=== PATIENT | male | born 1985 | race Caucasian/White ===

== ENCOUNTER 2016-07-23 15:18 | Emergency (ER) | payer OTHER ==
[~2016-07-23] VITALS: Ht 182.9 cm; Wt 97.5 kg
[2016-07-23 15:19] VITALS: BP 158/82
[2016-07-23] MEDS ORDERED: IBUP600T26 PO (15:46)
[2016-07-23] MEDS ORDERED: TYLE325T5 PO (15:46)
[2016-07-23] MEDS ORDERED: AMOX500C PO (15:53)
[2016-07-23] MEDS ORDERED: HYDR-3713 PO (15:53)
== END 2016-07-23 16:08 | disposition home or self-care (01) ==
LOC: M ED 16:05
DX: K02.9 Dental caries, unspecified (principal); R51 Headache; M54.9 Dorsalgia, unspecified; F17.210 Nicotine dependence, cigarettes, uncomplicated

== ENCOUNTER → 2017-02-17 | Outpatient (REF) ==
[~2017-02-17] MED LIST: AMOX500C PO; HYDR-3713 PO; IBUP-1022 PO; TYLE325T5 PO
--- NOTE | 2017-02-17 15:42 | REP ---
LUMBOSACRAL SPINE: AP and lateral views of the lumbosacral spine are performed with three total views obtained. There is no compression fracture or malalignment with normal lumbar lordosis. There is mild spurring at L5 and S1 with moderate intervening disc space narrowing at L5-S1, with subchondral sclerosis as well as sclerosis at the posterior facet joints. There is mild narrowing and subchondral sclerosis at L4-5 as well. The posterior elements are intact. IMPRESSION: Mild to moderate degenerative changes L4-5 and L5-S1. Signed by Deng Brown MD 02/18/2017 04:30 P
== END ==
LOC: M SMT 13:31
PROVIDERS: ATTEND Internal Medicine
DX: M51.36 Other intervertebral disc degeneration, lumbar region (principal)

== ENCOUNTER → 2017-07-22 | Outpatient (CLI) | payer OTHER ==
[2017-07-22 08:59] LABS: HEMATOCRIT 45.1 % (42.0-52.0); MEAN CORPUSCULAR HEMOGLOBIN 29.8 pg (27.0-33.0); MEAN CORPUSCULAR HGB CONC 33.3 g/dl (32.0-36.5); MEAN CORPUSCULAR VOLUME 89.7 fl (80.0-96.0); PLATELET COUNT, AUTOMATED 335 10^3/uL (150-450); RED BLOOD COUNT 5.03 10^6/uL (4.30-6.10); RED CELL DISTRIBUTION WIDTH 12.4 % (11.5-14.5); WHITE BLOOD COUNT 9.3 10^3/uL (4.0-10.0)
[2017-07-22 09:56] LABS: ANION GAP 7 MEQ/L (8-16); BLOOD UREA NITROGEN 18 MG/DL (7-18); CARBON DIOXIDE LEVEL 33 MEQ/L (21-32); CHLORIDE LEVEL 99 MEQ/L (98-107); CREATININE FOR GFR 0.84 MG/DL (0.70-1.30); GLOMERULAR FILTRATION RATE > 60.0 (>60); GLUCOSE, FASTING 87 MG/DL (70-100); POTASSIUM SERUM 3.8 MEQ/L (3.5-5.1); SODIUM LEVEL 139 MEQ/L (136-145)
[2017-07-22 09:57] LABS: ALBUMIN 4.8 GM/DL (3.2-5.2); ALBUMIN/GLOBULIN RATIO 1.55 (1.00-1.93); ALKALINE PHOSPHATASE 91 U/L (45-117); ALT/SGPT 28 U/L (12-78); AST/SGOT 20 U/L (7-37); BILIRUBIN,TOTAL 0.6 MG/DL (0.2-1.0); CALCIUM LEVEL 9.2 MG/DL (8.5-10.1); CHOLESTEROL LEVEL 222 MG/DL (<200); CHOLESTEROL RISK RATIO 4.269 (<5); HDL CHOLESTEROL 52 MG/DL (>40); NON-HDL-C 170 MG/DL; PROSTATIC SPECIFIC AG MONITOR 0.58 NG/ML (< 4.0); TOTAL PROTEIN 7.9 GM/DL (6.4-8.2); TRIGLYCERIDES LEVEL 165 MG/DL (<150)
[2017-07-22 10:01] LABS: TESTOSTERONE 287 NG/DL (241-827)
[2017-07-22 11:04] LABS: ESTIMATED AVERAGE GLUCOSE 114 MG/DL (60-110); HEMOGLOBIN A1c 5.6 %
== END ==
LOC: M LAB 08:07
DX: D64.9 Anemia, unspecified (principal); R53.83 Other fatigue; E03.9 Hypothyroidism, unspecified
CPT/HCPCS: 84403

== ENCOUNTER 2017-10-06 15:48 | Emergency (ER) | payer OTHER | END 2017-10-06 17:58 | disposition left against medical advice (07) | LOC: M ED 15:48 | DX: Z53.29 Procedure and treatment not carried out because of patient's decision for other reasons (principal) ==

== ENCOUNTER → 2017-12-19 | Outpatient (CLI) | payer OTHER | LOC: M RAD 14:15 | DX: M46.1 Sacroiliitis, not elsewhere classified (principal) | CPT/HCPCS: 72148 ==

== ENCOUNTER 2018-04-03 21:48 | Emergency (ER) | payer OTHER ==
[2018-04-03] MEDS: METOCLOPRAMIDE INJ 10MG/2ML VIAL (J2765) IV (23:00)
[2018-04-03] MEDS: NS 1,000 ML IV (23:01)
[2018-04-03 23:02] LABS: BASO # 0.1 10^3/uL (0.0-0.2); BASO % 0.4 % (0.0-1.0); HEMOGLOBIN 15.5 g/dl (13.5-17.5); IMMATURE GRANULOCYTE % 1.1 % (0-3.0); LYMPH % 10.6 % (24.0-44.0); MEAN CORPUSCULAR HEMOGLOBIN 30.6 pg (27.0-33.0); MEAN CORPUSCULAR HGB CONC 33.7 g/dl (32.0-36.5); MEAN CORPUSCULAR VOLUME 90.9 fl (80.0-96.0); MONO # 1.1 10^3/uL (0.0-0.8); MONO % 5.9 % (0.0-5.0); NEUTROPHILS # 15.7 10^3/uL (1.8-7.7); PLATELET COUNT, AUTOMATED 438 10^3/uL (150-450); RED BLOOD COUNT 5.06 10^6/uL (4.30-6.10); RED CELL DISTRIBUTION WIDTH 12.8 % (11.5-14.5); WHITE BLOOD COUNT 19.2 10^3/uL (4.0-10.0)
[2018-04-03] MEDS: FLUORESCEIN OPHTH 1 MG STRIP OS (23:06)
[2018-04-03] MEDS: CLINDAMYCIN 900 MG in APPROPRIATE DILUENT 1 EA IV (23:13)
[2018-04-03] MEDS: MORPHINE 4 MG/ML 1ML VIAL/SYRINGE (J2270) IV (23:13)
[2018-04-03 23:22] LABS: ERYTHROCYTE SEDIMENTATION RATE 9 mm/hr (0-15)
[2018-04-03 23:30] LABS: ALBUMIN 4.1 GM/DL (3.2-5.2); ALBUMIN/GLOBULIN RATIO 1.08 (1.00-1.93); ALKALINE PHOSPHATASE 123 U/L (45-117); ALT/SGPT 68 U/L (12-78); ANION GAP 8 MEQ/L (8-16); AST/SGOT 32 U/L (7-37); BILIRUBIN,DIRECT < 0.1 MG/DL (0.0-0.2); BILIRUBIN,TOTAL 0.2 MG/DL (0.2-1.0); BLOOD UREA NITROGEN 13 MG/DL (7-18); C REACTIVE PROTEIN QUANTITATIV 1.05 MG/DL (0.00-0.30); CALCIUM LEVEL 9.3 MG/DL (8.5-10.1); CARBON DIOXIDE LEVEL 28 MEQ/L (21-32); CHLORIDE LEVEL 103 MEQ/L (98-107); CREATININE FOR GFR 0.98 MG/DL (0.70-1.30); GLOMERULAR FILTRATION RATE > 60.0 (>60); GLUCOSE, FASTING 104 MG/DL (70-100); POTASSIUM SERUM 4.2 MEQ/L (3.5-5.1); SODIUM LEVEL 139 MEQ/L (136-145); TOTAL PROTEIN 7.9 GM/DL (6.4-8.2)
[2018-04-04] MEDS: NORCO 5/325MG TABLET (BULK FOR ED) PO (00:15)
== END 2018-04-04 00:26 | disposition home or self-care (01) ==
LOC: M ED 04-04 00:26
DX: K13.0 Diseases of lips (principal); K02.9 Dental caries, unspecified; Z72.0 Tobacco use; Z79.899 Other long term (current) drug therapy
CPT/HCPCS: J2270

== ENCOUNTER 2018-04-09 22:53 | Emergency (ER) | payer OTHER | END 2018-04-09 23:06 | disposition left against medical advice (07) | LOC: M ED 22:53 | DX: Z53.29 Procedure and treatment not carried out because of patient's decision for other reasons (principal) ==

== ENCOUNTER 2018-08-08 18:22 | Emergency (ER) | payer OTHER ==
[~2018-08-08] VITALS: Ht 182.9 cm; Wt 93.2 kg
[2018-08-08 18:22] VITALS: BP 154/96
[~2018-08-08 18:22] MED LIST changes: +ALPR1TAB3 PO; +BACT800T5 PO; +CLEO300C2 PO; +GABA800T4; +TRAZ-163; +VENL150C43 PO
[2018-08-08] MEDS ORDERED: BACL10TA8 PO (18:37)
[2018-08-08] MEDS ORDERED: TEST200I14 (18:37)
[2018-08-08] MEDS ORDERED: ADDE20TA (18:37)
[2018-08-08] MEDS ORDERED: ZOLO25TA (18:37)
[2018-08-08] MEDS ORDERED: CLINDAMYCIN 150 MG CAP PO ONE (18:45)
[2018-08-08] MEDS ORDERED: CLEO300C2 PO (18:52)
== END 2018-08-08 18:59 | disposition home or self-care (01) ==
LOC: M ED 18:22
DX: L02.413 Cutaneous abscess of right upper limb (principal); Z79.899 Other long term (current) drug therapy

== ENCOUNTER 2018-11-17 22:15 | Emergency (ER) | payer OTHER ==
[~2018-11-17] VITALS: Ht 182.9 cm; Wt 88.6 kg
[2018-11-17 22:15] VITALS: BP 131/84
[~2018-11-17 22:15] MED LIST changes: +ADDE20TA; +BACL10TA8 PO; +TEST200I14; +ZOLO25TA
[2018-11-17] MEDS ORDERED: GABA600T4 (22:28)
[2018-11-17] MEDS ORDERED: ALPR2TAB3 (22:28)
[2018-11-17] MEDS ORDERED: NICO1DIS9 (22:28)
[2018-11-17] MEDS ORDERED: TRAZ-252 (22:28)
== END 2018-11-18 00:07 | disposition left against medical advice (07) ==
LOC: M ED 22:15
DX: Z53.29 Procedure and treatment not carried out because of patient's decision for other reasons (principal)

== ENCOUNTER 2019-03-12 05:59 | Emergency (ER) | payer OTHER ==
[~2019-03-12] VITALS: Ht 182.9 cm; Wt 88.6 kg
[~2019-03-12 05:59] MED LIST changes: -ADDE20TA; +ADDE20TA PO; +ALPR2TAB3; +GABA600T4 PO; +NICO1DIS9; -TEST200I14; +TEST200I14 IM; -TRAZ-163; +TRAZ-163 PO; +TRAZ-252
[2019-03-12 06:00] VITALS: BP 145/74
[2019-03-12] MEDS ORDERED: XANA2TAB2 PO (06:16)
[2019-03-12] MEDS ORDERED: KETOROLAC 30 MG/ML VIAL (J1885) IV ONE (07:00)
--- NOTE | 2019-03-12 07:33 | REPVR ---
PROCEDURE INFORMATION: Exam: CT Head Without Contrast Exam date and time: 03/12/2019 6:53 AM Clinical history: 33 years old, male; Weakness, extremity; Additional info: Weakess, numbness, disoriented TECHNIQUE: Imaging protocol: Computed tomography of the head without contrast. Radiation optimization: All CT scans at this facility use at least one of these dose optimization techniques: automated exposure control; mA and/or kV adjustment per patient size (includes targeted exams where dose is matched to clinical indication); or iterative reconstruction. COMPARISON: No relevant prior studies available. FINDINGS: Brain: Normal. No hemorrhage. Unremarkable white matter. No mass effect. Ventricles: Normal. No ventriculomegaly. Bones/joints: Unremarkable. No acute fracture. Sinuses: Visualized sinuses are unremarkable. No fluid levels. Mastoid air cells: Visualized mastoid air cells are well aerated. Soft tissues: Unremarkable. IMPRESSION: No acute intracranial abnormality. Electronically signed by: Aravind Barrera On 03/12/2019 07:32:34 AM
--- NOTE | 2019-03-12 07:34 | REPVR ---
PROCEDURE INFORMATION: Exam: CT Lumbar Spine Without Contrast Exam date and time: 03/12/2019 6:53 AM Clinical history: 33 years old, male; Low back pain; Additional info: Chronic low back pain, weakness legs TECHNIQUE: Imaging protocol: Computed tomography images of the lumbar spine without contrast. Radiation optimization: All CT scans at this facility use at least one of these dose optimization techniques: automated exposure control; mA and/or kV adjustment per patient size (includes targeted exams where dose is matched to clinical indication); or iterative reconstruction. COMPARISON: MRI-Spine, L.S. without con 12/19/2017 2:38 PM FINDINGS: Vertebrae: No acute fracture. Normal alignment. Discs/Spinal canal/Neural foramina: Degenerative disc disease and facet hypertrophy at L5-S1 with mild stenosis of the spinal canal and bilateral neural foramina. Mild degenerative disc disease at L4-5. Soft tissues: Unremarkable. Other findings: Degraded by motion. IMPRESSION: Degraded by motion. No acute fractures or spondylolisthesis. Degenerative disc disease and facet hypertrophy at L5-S1 with mild stenosis of the spinal canal and bilateral neural foramina. Mild degenerative disc disease at L4-5. Electronically signed by: Aravind Barrera On 03/12/2019 07:34:32 AM
[2019-03-12] MEDS ORDERED: IBUP80TA PO (18:23)
== END 2019-03-12 08:16 | disposition left against medical advice (07) ==
LOC: M ED 05:59
DX: M51.36 Other intervertebral disc degeneration, lumbar region (principal); F33.9 Major depressive disorder, recurrent, unspecified; F41.9 Anxiety disorder, unspecified; F43.10 Post-traumatic stress disorder, unspecified; F90.9 Attention-deficit hyperactivity disorder, unspecified type; Z79.899 Other long term (current) drug therapy; F17.210 Nicotine dependence, cigarettes, uncomplicated

== ENCOUNTER 2019-03-12 17:05 | Emergency (ER) | payer OTHER ==
[~2019-03-12] VITALS: Ht 182.9 cm; Wt 88.6 kg
[~2019-03-12 17:05] MED LIST changes: +XANA2TAB2 PO
[2019-03-12] MEDS ORDERED: LORazepam 2 MG/ML VIAL (J2060) IV STA (17:10)
[2019-03-12] MEDS ORDERED: ONDANSETRON 4MG/2ML VIAL (J2405) IV ONE (17:15)
[2019-03-12] MEDS ORDERED: MORPHINE 4 MG/ML 1ML VIAL/SYRINGE (J2270) IV ONE (17:15)
[2019-03-12] MEDS ORDERED: NS 1,000 ML IV ONE (17:30)
[2019-03-12 17:31] LABS: BASO # 0.1 10^3/uL (0.0-0.2); BASO % 0.5 % (0.0-1.0); EOS # 0.3 10^3/uL (0.0-0.5); EOS % 1.9 % (0.0-3.0); HEMATOCRIT 46.5 % (42.0-52.0); HEMOGLOBIN 15.5 g/dl (13.5-17.5); LYMPH # 2.7 10^3/uL (1.5-5.0); LYMPH % 20.4 % (24.0-44.0); MEAN CORPUSCULAR HEMOGLOBIN 30.2 pg (27.0-33.0); MEAN CORPUSCULAR HGB CONC 33.3 g/dl (32.0-36.5); MEAN CORPUSCULAR VOLUME 90.6 fl (80.0-96.0); MONO # 1.7 10^3/uL (0.0-0.8); MONO % 12.8 % (0.0-5.0); NEUTROPHILS # 8.4 10^3/uL (1.5-8.5); PLATELET COUNT, AUTOMATED 440 10^3/uL (150-450); RED BLOOD COUNT 5.13 10^6/uL (4.30-6.10); WHITE BLOOD COUNT 13.1 10^3/uL (4.0-10.0)
[2019-03-12 17:42] LABS: INR 1.01
[2019-03-12 17:43] LABS: PARTIAL THROMBOPLASTIN TIME 31.9 SECONDS (25.0-38.4)
[2019-03-12] MEDS ORDERED: NS 1,000 ML IV SCH (17:43)
[2019-03-12 18:03] LABS: BLOOD UREA NITROGEN 16 MG/DL (7-18); CALCIUM LEVEL 10.2 MG/DL (8.5-10.1); CARBON DIOXIDE LEVEL 26 MEQ/L (21-32); CHLORIDE LEVEL 98 MEQ/L (98-107); CREATININE FOR GFR 1.21 MG/DL (0.70-1.30); ETHYL ALCOHOL (ETHANOL) < 0.003 % (0.000-0.010); GLOMERULAR FILTRATION RATE > 60.0 (>60); GLUCOSE, FASTING 80 MG/DL (70-100); POTASSIUM SERUM 5.7 MEQ/L (3.5-5.1); SODIUM LEVEL 134 MEQ/L (136-145)
[2019-03-12] MEDS: PROPOFOL 200 MG/20 ML VIAL IV PRN ×2 (18:06→18:08)
--- NOTE | 2019-03-12 18:13 | REPVR ---
PROCEDURE INFORMATION: Exam: CT Head Without Contrast Exam date and time: 03/12/2019 5:37 PM Clinical history: 33 years old, male; Injury or trauma; Fall; Initial encounter; Blunt trauma (contusions or hematomas); Injury details: 2nd story window TECHNIQUE: Imaging protocol: Computed tomography of the head without contrast. Radiation optimization: All CT scans at this facility use at least one of these dose optimization techniques: automated exposure control; mA and/or kV adjustment per patient size (includes targeted exams where dose is matched to clinical indication); or iterative reconstruction. COMPARISON: CT Head without contrast 03/12/2019 6:51 AM FINDINGS: Brain: No CT evidence of acute intracranial hemorrhage or acute territorial infarction. No significant mass effect or midline shift. Basal cisterns patent. Ventricles: Normal in size and configuration. Bones/joints: No acute osseous abnormality. Sinuses: Minimal ethmoid mucosal thickening. Mastoid air cells: Minimal opacification of the left mastoid air cells. Soft tissues: Grossly unremarkable. IMPRESSION: 1. No CT evidence of acute intracranial pathology. 2. Additional findings, as above. Electronically signed by: Junior Ivy On 03/12/2019 18:13:35 PM
[2019-03-12] MEDS ORDERED: IBUP80TA PO (18:23)
--- NOTE | 2019-03-12 18:23 | REPVR ---
PROCEDURE INFORMATION: Exam: CT Cervical Spine Without Contrast Exam date and time: 03/12/2019 5:37 PM Clinical history: 33 years old, male; Injury or trauma; Fall; Initial encounter; Blunt trauma; Injury details: 2nd story window TECHNIQUE: Imaging protocol: Computed tomography images of the cervical spine without contrast. Axial, coronal and sagittal reformatted images were created and reviewed. Radiation optimization: All CT scans at this facility use at least one of these dose optimization techniques: automated exposure control; mA and/or kV adjustment per patient size (includes targeted exams where dose is matched to clinical indication); or iterative reconstruction. COMPARISON: No relevant prior studies available. FINDINGS: Vertebrae: Normal cervical lordosis. Alignment anatomic. No CT evidence of acute fracture, dislocation or subluxation. Vertebral body heights maintained. Discs/Spinal canal/Neural foramina: Mild multilevel degenerative changes, characterized by disc space narrowing, osteophytosis and uncovertebral and facet joint hypertrophy. Mild multilevel spinal canal and neural foraminal narrowing. Soft tissues: Grossly unremarkable. Lungs: Grossly unremarkable. IMPRESSION: 1. No CT evidence of acute cervical spine traumatic injury. 2. Additional findings, as above. Electronically signed by: Junior Ivy On 03/12/2019 18:22:51 PM
[2019-03-12] MEDS: MORPHINE 4 MG/ML 1ML VIAL/SYRINGE (J2270) IV PRN ×2 (18:46→19:18)
[2019-03-12 19:32] VITALS: BP 165/110
--- NOTE | 2019-03-12 19:35 | REP ---
Right tib-fib series: Three views. History: Trauma. Findings: Three views of the right calf through overlying splint material demonstrate a comminuted distal tibial metaphyseal fracture and a transversely oriented distal fibular diaphyseal fracture. No proximal tibial or fibular fracture is appreciated. Electronically Signed by Tom Ramirez MD 03/12/2019 07:27 P
--- NOTE | 2019-03-12 19:38 | REP ---
Right ankle: Two views. History: Trauma. Findings: AP and lateral views of the right ankle demonstrate a transversely oriented comminuted fracture of the distal tibial metaphysis with anterolateral displacement and apex medial angulation with some impaction. I suspect a fracture has an intra-articular component with a 4 mm step-off. There is any distal fibular diaphyseal transverse fracture. There is some medial displacement and override at the distal fibular fracture. Impression: Distal tibial and fibular fractures. Electronically Signed by Tom Ramirez MD 03/12/2019 07:29 P
--- NOTE | 2019-03-13 07:19 | REP ---
Right ankle: Two views. History: Post reduction. Comparison is made with earlier films. Findings: Two views taken through overlying splint material demonstrate improved alignment of the distal tib-fib fractures. There is still apex medial angulation and approximately a centimeter of lateral displacement of the tibial fracture. Electronically Signed by Tom Ramirez MD 03/13/2019 08:29 A
== END 2019-03-12 19:39 | disposition short-term general hospital (02) ==
LOC: M ED 17:05 → EDBD 17:05 → M ED 19:39
DX: S82.871A Displaced pilon fracture of right tibia, initial encounter for closed fracture (principal); S82.831A Other fracture of upper and lower end of right fibula, initial encounter for closed fracture; W13.4XXA Fall from, out of or through window, initial encounter; Y92.019 Unspecified place in single-family (private) house as the place of occurrence of the external cause; T14.91XA Suicide attempt, initial encounter; M50.30 Other cervical disc degeneration, unspecified cervical region; M25.78 Osteophyte, vertebrae; M53.82 Other specified dorsopathies, cervical region; F17.210 Nicotine dependence, cigarettes, uncomplicated; G89.29 Other chronic pain; M54.5 Low back pain; F90.9 Attention-deficit hyperactivity disorder, unspecified type; F43.10 Post-traumatic stress disorder, unspecified; F33.9 Major depressive disorder, recurrent, unspecified; F41.9 Anxiety disorder, unspecified; Z79.83 Long term (current) use of bisphosphonates; Z79.899 Other long term (current) drug therapy
CPT/HCPCS: 27825; 70450; 72125; 73590; 73600; 80048; 85025; 85610; 85730; 86850; 86900; 86901; 93041; 94760; 96361; 96374; 96375; 96376; 99285; G0480; J2060; J2270; J2405

== ENCOUNTER → 2019-03-28 | Outpatient (REF) ==
[~2019-03-28] MED LIST changes: +IBUP80TA PO
== END ==
LOC: M LAB 09:51